=== PATIENT | male | born 1950 | race American Indian/Alaskan Native ===

== ENCOUNTER 2017-06-09 08:48 | Outpatient (CLI) | payer MEDICARE ==
--- NOTE | 2017-06-13 08:51 | PET Report ---
PET SB TO MT INITIAL: HISTORY: Adenocarcinoma of the duodenum. TECHNIQUE: 14.4 millicuries F-18 FDG was administered intravenously. Noncontrast CT images and PET images were obtained from the skull base to the proximal thighs. Fused images were reviewed on a workstation. The patient's blood glucose level measured 118. COMPARISON: No relevant comparisons at this facility. FINDINGS: BRAIN: physiologic FDG uptake in the imaged brain. NECK: physiologic FDG uptake. MEDIASTINUM: physiologic FDG uptake. LUNGS: physiologic FDG uptake. PLEURA/PERICARDIUM: There is a focal area of smooth pleural thickening measuring up to 1 cm in the anterior right upper lobe. Max SUV in this area is increased measuring 6.1. No additional pleural mass or pleural fluid. THORACIC LYMPH NODES: physiologic FDG uptake. HEPATOBILIARY: There is heterogeneous uptake of the radiotracer throughout the liver with mean liver SUV measuring 5.6. An approximate 3.8 cm hypodense liver mass is identified in the superior right hepatic lobe near the IVC with Max SUV measuring 27.9. There are 3 additional smaller areas of increased radiotracer uptake near the gallbladder fossa with Max SUV measuring 10.6, 10.6 and 11.2. No obvious mass is identified in this area on the CT images. Underlying smaller liver lesions could be present. SPLEEN: physiologic FDG uptake. ADRENAL GLANDS: physiologic FDG uptake. KIDNEYS/RENAL COLLECTING SYSTEMS: physiologic FDG uptake. BOWEL/MESENTERY: There is circumferential bowel wall thickening and surrounding fat stranding in the region of the descending duodenum measuring up to 5.4 x 6.1 cm in axial plane. Max SUV in this area measures 37.3. This presumably represents a duodenal mass although it appears to be continuous with the pancreatic head. The remainder of the pancreas is within normal limits. PELVIC VISCERA: There is a small amount fluid in the pelvis between the rectum and bladder with Max SUV in this area measuring up to 50.0. There is no discrete mass on CT imaging. The significance of this is unclear but neoplastic involvement should be considered. ABDOMINAL/PELVIC LYMPH NODES: physiologic FDG uptake. MUSCULOSKELETAL: There are diffuse degenerative changes but no lytic or blastic bony lesions are identified. IMPRESSION: Hypermetabolic mass in the expected position of the descending duodenum which presumably represents a duodenal adenocarcinoma. This mass appears contiguous with the pancreatic head. 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 There are 3 additional questionable liver lesions in the gallbladder fossa as described. There is a focal area of uptake in the right upper lobe anterior pleura concerning for a pleural metastasis. There is intense uptake of radiotracer in the pelvis which appears to correlate with a small fluid collection. It is unclear if this is related to inflammation or a metastatic lesion.
== END 2017-06-09 08:49 | disposition home or self-care (01) ==
LOC: PET 08:48
PROVIDERS: ATTEND Internal Medicine Hematology & Oncology
DX: C78.7 Secondary malignant neoplasm of liver and intrahepatic bile duct (principal); C17.0 Malignant neoplasm of duodenum; E11.9 Type 2 diabetes mellitus without complications; I10 Essential (primary) hypertension; D64.9 Anemia, unspecified
CPT/HCPCS: 78815; 82962; A9552